=== PATIENT | female | born 1975 | race Caucasian/White ===

== ENCOUNTER 2021-05-25 07:00 | Day surgery (SDC) | payer OTHER | END 2021-05-25 22:00 | disposition home or self-care (01) | LOC: CIR.AMB 07:00 | PROVIDERS: ATTEND Obstetrics & Gynecology Obstetrics | DX: N93.8 Other specified abnormal uterine and vaginal bleeding (principal); Z20.822 Contact with and (suspected) exposure to COVID-19 ==

== ENCOUNTER 2022-04-18 21:39 | Inpatient (IN) | payer OTHER ==
[~2022-04-18] VITALS: Ht 172.7 cm; Wt 79.8 kg
--- NOTE | 2022-04-18 21:57 | NUR ---
SE RECIBE PACIENTE ALERTA, ORIENTADA X 3 LLEGA EN AMBULANCIA TRASLADO DE [facility]. PTE REFIERE TENER SAN[place] VAGINAL HACE 14 MOSS. SE ESTIMAN S/V SE UBICA EN AREA DE OBSERVACION, MICHELLE # 11.
--- NOTE | 2022-04-18 22:34 | NUR ---
SE EDCUA A PTE SOBRE TX MEDICO ESTA REFIERE ENTENDER. SE ELAN MUESTRAS DE LABORATORIO UTILIZANDO MEDIDAS ASEPTICAS. SE COLOCA H/L X2 EN BRAZO LT Y SE ADMINISTRAN MEDICAMENTOS LOS CUALES TOLERA.
--- NOTE | 2022-04-18 23:07 | NUR ---
SE LLAMA A PERSONAL DE [facility] PARA REQUIZAR 3 UNIDADES DE PRBC PARA TRANSFUNDIR. SE NOTIFICA A MRS. RUSSELL A LAS 11:00PM. SE LLEVAN TUBOS PILOTOS A LABORATORIO.
== END 2022-04-25 15:20 | disposition home or self-care (01) | DRG 743 ==
LOC: ER 21:39 → OB/GYN 22:42
PROVIDERS: ADMIT Obstetrics & Gynecology Obstetrics; ATTEND Obstetrics & Gynecology Obstetrics
PROC: BU4CZZZ Ultrasonography of Uterus and Ovaries (ICD-10-PCS; 2022-04-18)
PROC: 0UT90ZZ Resection of Uterus, Open Approach (ICD-10-PCS; principal; 2022-04-23)
PROC: 0UT70ZZ Resection of Bilateral Fallopian Tubes, Open Approach (ICD-10-PCS; 2022-04-23)
PROC: 0UT20ZZ Resection of Bilateral Ovaries, Open Approach (ICD-10-PCS; 2022-04-23)
DX: D25.1 Intramural leiomyoma of uterus (principal); D25.2 Subserosal leiomyoma of uterus; N72 Inflammatory disease of cervix uteri; Z20.822 Contact with and (suspected) exposure to COVID-19